=== PATIENT | male | born 1965 | race Caucasian/White ===

== ENCOUNTER → 2016-04-04 | Outpatient (CLI) | payer BC | LOC: BHSO 09:58 | DX: F41.1 Generalized anxiety disorder (principal) ==

== ENCOUNTER → 2016-05-23 | Outpatient (CLI) | payer BC | LOC: BHSO 10:56 | DX: F41.1 Generalized anxiety disorder (principal) ==

== ENCOUNTER → 2016-08-02 | Outpatient (CLI) | payer BC | LOC: BHSO 12:50 | DX: F41.1 Generalized anxiety disorder (principal) ==